=== PATIENT | male | born 1950 | race Caucasian/White ===

== ENCOUNTER → 2017-12-29 | Outpatient (CLI) | payer MEDICARE, OTHER | END | disposition home or self-care (01) | LOC: CFH 12:54 | PROVIDERS: ATTEND Nurse Practitioner Family | DX: I25.9 Chronic ischemic heart disease, unspecified (principal); I25.10 Atherosclerotic heart disease of native coronary artery without angina pectoris | CPT/HCPCS: 78452; 93017; A9502 ==

== ENCOUNTER 2018-02-24 11:34 | Day surgery (SDC) | payer MEDICARE, OTHER ==
[~2018-02-24] VITALS: Ht 177.8 cm; Wt 88.5 kg
[2018-02-24] MEDS ORDERED: TADA10TA PO (13:28)
[2018-02-24] MEDS ORDERED: AMLO5TAB2 PO (13:28)
[2018-02-24] MEDS ORDERED: ATOR20TA9 PO (13:28)
[2018-02-24] MEDS ORDERED: RAMI10CA PO (13:28)
[2018-02-24] MEDS ORDERED: ASPI-621 PO (13:28)
[2018-02-24] MEDS ORDERED: SODIUM CHLORIDE 0.9% 1,000 ML IV ONE (13:34)
[2018-02-24 13:39] VITALS: BP 128/78
[2018-02-24] MEDS ORDERED: ASPIRIN 325 MG TABLET EC ONE (13:53)
[2018-02-24] MEDS ORDERED: ASPIRIN 325 MG TABLET EC PO ONE (14:00)
[2018-02-24] MEDS ORDERED: PLEASE ENTER HEIGHT AND WEIGHT MC SCH (14:00)
[2018-02-24 14:14] LABS: ANION GAP 6 mmol/L (5-15); BASOPHILS # (AUTO) 0.03 x10^3/uL (0-0.1); BASOPHILS % (AUTO) 0 % (0-1); CALCIUM 8.9 mg/dL (8.5-10.1); CHLORIDE 108 mmol/L (98-107); CREATININE 1.15 mg/dL (0.7-1.3); EOSINOPHILS % (AUTO) 1 % (1-7); LYMPHOCYTES # (AUTO) 2.09 x10^3/uL (1-3.4); LYMPHOCYTES % (AUTO) 25 % (22-44); MD NO; MEAN CORPUSCULAR HEMOGLOBIN 31.8 pg (27.5-34.5); MEAN CORPUSCULAR HGB CONC 33.5 g/dL (33.2-36.2); MEAN CORPUSCULAR VOLUME 94.8 fL (81-97); MEAN PLATELET VOLUME 8.8 fL (7.4-10.4); MONOCYTES # (AUTO) 0.64 x10^3/uL (0.2-0.8); MONOCYTES % (AUTO) 8 % (2-9); NEUTROPHILS # (AUTO) 5.39 x10^3/uL (1.8-6.8); NEUTROPHILS % (AUTO) 65 % (42-75); PLATELET COUNT 230 x10^3/uL (130-400); RED BLOOD COUNT 4.79 x10^6/uL (4.38-5.82); RED CELL DISTRIBUTION WIDTH 13.9 % (9.4-14.8)
[2018-02-24] MEDS ORDERED: MIDAZOLAM 1 MG/ML, 5ML ONE (14:29)
[2018-02-24] MEDS ORDERED: BIVALIRUDIN 250 MG ONE (14:30)
[2018-02-24] MEDS ORDERED: LIDOCAINE-MPF 2%, 2ML ONE (14:30)
[2018-02-24] MEDS ORDERED: HEPARIN 1,000 UNITS/ML, 10ML ONE (14:30)
[2018-02-24] MEDS ORDERED: FENTANYL PF 100 MCG/2ML ONE (14:30)
[2018-02-24] MEDS ORDERED: VERAPAMIL 2.5 MG/ML, 2ML ONE (14:30)
[2018-02-24] MEDS ORDERED: TICAGRELOR 90 MG TABLET ONE (14:30)
[2018-02-24] MEDS ORDERED: SODIUM CHLORIDE 0.9% 1,000 ML IV SCH (15:12)
== END 2018-02-24 16:32 | disposition home or self-care (01) ==
LOC: CACL 11:34
PROVIDERS: ATTEND Internal Medicine Cardiovascular Disease
DX: R07.9 Chest pain, unspecified (principal); I10 Essential (primary) hypertension; E78.00 Pure hypercholesterolemia, unspecified; G47.30 Sleep apnea, unspecified; Z79.82 Long term (current) use of aspirin
CPT/HCPCS: 36415; 80048; 85025; 93458; 99156; C1769; C1894; J1644; J2250; J3010; J3490; Q9967; J0583